=== PATIENT | female | born 1990 | race Caucasian/White ===

== ENCOUNTER 2020-05-14 13:21 | Outpatient (CLI) | payer BC ==
[~2020-05-14 13:21] MED LIST: Iopamidol 300 61% 50 ML VIAL FS ONE
--- NOTE | 2020-05-14 14:31 | RAD ---
Exam: Hysterosalpingogram HISTORY: Infertility of tubal origin COMPARISON: None FINDINGS: Successful hysterosalpingogram. Left and right fallopian tube opacified in their entirety. Free spillage of the left and right hemipelvis. Lower uterine segment is grossly unremarkable IMPRESSION: Patent left and right fallopian tube.
== END 2020-05-14 13:22 | disposition home or self-care (01) ==
LOC: RAD 13:21
PROVIDERS: ATTEND Nurse Practitioner Family
DX: N97.1 Female infertility of tubal origin (principal)
CPT/HCPCS: 58340; 74740; Q9967